=== PATIENT | male | born 1960 | race Caucasian/White ===

== ENCOUNTER 2017-10-23 07:27 | Day surgery (SDC) | END 2017-10-23 10:45 | disposition home or self-care (01) ==

== ENCOUNTER 2018-05-07 05:39 | Day surgery (SDC) | payer OTHER ==
[2018-05-06 10:24] VITALS: BMI 32.8
--- NOTE | 2018-05-06 13:26 | PREOPHP ---
DATE OF ADMISSION: 05/07/2018 DATE OF SERVICE: 05/07/2018. HISTORY OF PRESENT ILLNESS: This 57-year-old patient is admitted for elective cataract surgery of th e left eye. The patient has had decreased vision in both eyes for the past years' time and 6 months ago underwent cataract surgery of the right eye with good visual result. The patient does not have a ny other prior history of eye disease. Patient does have a history of systemic hypertension, hyperch olesterolemia, gout and dry eyes. CURRENT MEDICATIONS INCLUDE: 1. Lisinopril. 2. Simvastatin. 3. Allopurinol and Artificial Tears. ALLERGIES: There are no known allergies. PHYSICAL EXAMINATION: The visual acuity with correction is 20/40 in the right eye and 20/70 in the l eft eye. Applanation tonometry is 13 mmHg in the left eye. Slit lamp examination reveals a posterio r chamber intraocular lens in the right eye and a moderate nuclear sclerotic and posterior subcapsula r cataract in the left eye. Examination of the retina is within normal limits. DIAGNOSIS: Nuclear sclerotic and posterior subcapsular cataract, left eye. PLAN: Cataract extraction with lens implant, left eye. The risks and alternatives to the surgery rascon ve been discussed with the patient as well as the hope for improvement of visual acuity. The patient understands this and agrees to proceed with surgery. Dictated By: SUSHIL BRAGG/JOSE Conf#: [id number] DID#: [id number]
[~2018-05-07] VITALS: Ht 167.6 cm; Wt 93.6 kg
[2018-05-07] VITALS (10 sets, daily range): BP systolic 132–147; BP diastolic 77–92; PULSE 72–90; RESP 16–22; Ht 167.6 cm; Wt 93.6 kg
[~2018-05-07 05:39] MED LIST: ALLO300T2 PO; ATOR40TA68 PO; HYDR25TA6 PO; LISI40TA3 PO
[2018-05-07] MEDS ORDERED: TROPICAMIDE 1% 15 ML OPH OPER SCH (06:00)
[2018-05-07] MEDS ORDERED: SOD CHLORIDE 0.9% 1,000 ML IV SCH (06:00)
[2018-05-07] MEDS ORDERED: CYCLOPENTOLATE/PHENYLEPH 2 ML OPH OPER SCH (06:00)
[2018-05-07] MEDS ORDERED: MOXIFLOXACIN 0.5% 3 ML OPH OPER SCH (06:00)
[2018-05-07] MEDS ORDERED: DICLOFENAC 0.1% 2.5 ML OPH OPER SCH (06:00)
[2018-05-07] MEDS ORDERED: CEFAZOLIN 1 GM INJ ONE (07:13)
[2018-05-07] MEDS ORDERED: MOXIFLOXACIN 0.5% 3 ML OPH ONE (07:13)
[2018-05-07] MEDS ORDERED: TETRACAINE 0.5% 4 ML OPH ONE (07:13)
[2018-05-07] MEDS ORDERED: CARBACHOL 0.01% 1.5 ML OPH INJ ONE (07:13)
[2018-05-07] MEDS ORDERED: LIDOCAINE 4% (MPF) 5 ML INJ ONE (07:13)
[2018-05-07] MEDS ORDERED: GENTAMICIN 80 MG INJ ONE (07:14)
[2018-05-07] MEDS ORDERED: NA HYALURONATE/CHONDROITIN 0.5 ML SYG ONE (07:14)
[2018-05-07] MEDS ORDERED: DEXAMETHASONE 4 MG/ML 1 ML INJ ONE (07:14)
[2018-05-07] MEDS ORDERED: EPINEPHrine 1 MG INJ ONE (07:14)
[2018-05-07] MEDS ORDERED: LIDOCAINE 1% (MPF) 10 ML INJ ONE (07:15)
--- NOTE | 2018-05-07 07:19 | PREAC ---
Date/Time of Note Date/Time of Note DATE: 05/07/18 TIME: 07:16 Anesthesia Eval and Record Evaluation Time Pre-Procedure Interview DATE: 05/07/18 TIME: 07:16 Age 57 Sex male NPO: 8 hrs Preoperative diagnosis Lt cataract Planned procedure Lt cataract extraction Past Medical History Past Medical History: Includes Cardio: HTN Renal: Other (gout) GI: GERD Surgery & Anesthesia Issues No known issue Meds Anticoagulation: No Beta Gokul within 24 hr: No Reason Beta Gokul not given: Pt. not on B-Gokul Reported Medications Atorvastatin* (Atorvastatin*) 40 Mg Tablet, 40 MG PO QHS, #30 TAB 10/23/17 Hydrochlorothiazide* (Hydrochlorothiazide*) 25 Mg Tab, 25 MG PO DAILY, #30 TAB 10/23/17 Lisinopril* (Lisinopril*) 40 Mg Tablet, 40 MG PO DAILY, #30 TAB 10/23/17 Allopurinol* (Allopurinol*) 300 Mg Tablet, 300 MG PO DAILY, TAB 10/23/17 Current Medications Diclofenac Sodium (Voltaren 0.1%) 1 drop Q5 MIN X 3 OPER Last administered on 05/07/18at 06:45; Admin Dose 1 DROP; Start 05/07/18 at 06:00 Tropicamide (Mydriacyl 1%) 1 drop Q5 MIN X3 OPER Last administered on 05/07/18at 06:46; Admin Dose 1 DROP; Start 05/07/18 at 06:00 Moxifloxacin HCl (Vigamox) 1 drop Q5 MIN X 3 OPER Last administered on 05/07/18at 06:46; Admin Dose 1 DROP; Start 05/07/18 at 06:00 Cyclopentolate/ Phenylephrine (Cyclomydril Oph 2 ml) 1 drop Q5 MIN X 3 OPER Last administered on 05/07/18at 06:45; Admin Dose 1 DROP; Start 05/07/18 at 06:00 Sodium Chloride 1,000 ml @ 25 mls/hr Q24H IV ; Start 05/07/18 at 06:00 Meds reviewed: Yes Allergies Coded Allergies: No Known Allergy (Unverified , 10/23/17) Allergies Reviewed: Yes Labs/Studies Labs Reviewed: Reviewed by anesthesiologist test: N/A Studies: ECG, CXR Pre-procedure Exam Airway: Adequate mouth opening, Adequate thyromental dist Mallampati: Mallampati II Teeth: Normal Lung: Normal Heart: Normal ASA Physical Status ASA physical status: 2 Emergency: None Planned Anesthetic General/MAC: MAC Planned Pain Management Local by surgeon Pre-operative Attestations Prior to commencing anesthesia and surgery, the patient was re-evaluated, there was verification of: *The patient's identity *The results of appropriate recent lab work and preoperative vital signs *The above evaluation not changing prior to induction *Anesthetic plan, risk benefits, alternative and complications discussed with patient/family; questions answered; patient/family understands, accepts and wishes to proceed. ROXIE KNAPP. [employer] May 07, 2018 07:19
[2018-05-07] MEDS ORDERED: LIDOCAINE 2% (SDV) 5 ML INJ ONE (07:27)
[2018-05-07] MEDS ORDERED: PROPOFOL 20 ML ONE (07:27)
[2018-05-07] MEDS ORDERED: hydrALAzine 20 MG INJ ONE (07:49)
[2018-05-07] MEDS ORDERED: LABETALOL HCL 20MG INJ IV PRN (08:00)
[2018-05-07] MEDS ORDERED: ONDANSETRON 4 MG INJ IV PRN (08:00)
[2018-05-07] MEDS ORDERED: FENTAnyl 50 MCG/ML VIAL IV PRN (08:00)
[2018-05-07] MEDS ORDERED: hydrALAzine 20 MG INJ IV PRN (08:00)
--- NOTE | 2018-05-07 08:14 | SIPON ---
Date/Time of Note Date/Time of Note DATE: 05/07/18 TIME: 08:13 Operative Report Preoperative Diagnosis posterior subcapsular cataract os Postoperative Diagnosis same Operation/Procedure Performed cataract extraction with lens implant os Surgeon sushil chau emergency room physician assistant none Anesthesia: MAC Estimated blood loss: none Transfusion Required none Specimen none Grafts/Implants posterior chamber lens implant Complications none SUSHIL CHAU MD May 07, 2018 08:14
--- NOTE | 2018-05-07 08:54 | OPR ---
DATE OF OPERATION: 05/07/2018 PREOPERATIVE DIAGNOSIS: Posterior subcapsular cataract, left eye. POSTOPERATIVE DIAGNOSIS: Posterior subcapsular cataract, left eye. OPERATION PERFORMED: Cataract extraction with lens implant, left eye. SURGEON: Sushil Ramirez MD ANESTHESIA: Local standby. ANESTHESIOLOGIST: Vianney Roche CRNA OPERATION: Phacoemulsification with posterior chamber intraocular lens implant, left eye. PROCEDURE: The patient was brought to the operating room and placed on the table with an IV in place and the patient attached to an phototypesetting equipment monitor. Oxygen was given via face mask. After some intravenous sedation was administered, local anesthesia was given using Xylocaine 2% with epinephrine, mixed with Marcaine 0.5%. This was given in a lid block and retrobulbar injection. The p atient was then prepped and draped in the usual sterile manner. A wire lid speculum was inserted between the lids of the left eye. A Superblade was used to enter the anterior chamber at the corneoscleral limbus at the 10:30 o'clock position. A separate incision was made using a 3.0-mm keratome which entered the corneoscleral junction at the 12 o'clock position. Thr ough this 3-mm opening, an irrigating cystotome was introduced into the anterior chamber. The chamber was filled with Viscoat and an anterior capsulotomy was performed. Balanced salt solution was then u sed for hydrodissection of the lens. A phacoemulsification handpiece was then brought into the field and introduced into the anterior chamber. The lens nucleus was emulsified using a deep groove and cr acking the nucleus into quadrants. Following this, each quadrant was aspirated and emulsified at the pupillary margin. After this was completed, the irrigation/aspiration handpiece was brought to the field, introduced in to the posterior chamber, and the lens cortical material was removed. When this was completed, additi onal Viscoat was injected into the anterior and posterior chambers. The 3-mm opening had its internal lips enlarged, and then the posterior chamber intraocular lens jony uring 20.0 diopters ([employer] Model LI61AO) was then injected into the posterior c hamber using the lens injector system. After the leading haptic was introduced into the capsular bag and the lens optic was present in the center of the eye, the injector was removed and the trailing rascon ptic was grasped with non-toothed forceps and introduced into the capsular fold superiorly. A Sinskey hook was then used to rotate the intraocular lens so that the lips were oriented in the horizontal m eridian. One 10-0 nylon suture was placed across the wound. Prior to tying, the irrigation/aspiration handpiece was reintroduced into the anterior chamber to rem ove the Viscoat. Miochol was instilled to constrict the pupil, and then the 10-0 nylon suture was tie d. The ends were cut short and then the knot was buried. Then, 0.5 mL of dexamethasone and 0.5 mL of Ancef were injected into the sub-Tenon space in the infer ior fornix. Ciloxan drops were then placed on the surface of the eye. The speculum was removed and a patch was applied. The patient then left the operating room in satisfactory condition. Dictated By: SUSHIL BRAGG/JOSE Conf#: [id number] DID#: [id number]
--- NOTE | 2018-05-07 09:47 | PAC ---
Date/Time of Note Date/Time of Note DATE: 05/07/18 TIME: 09:46 Post-Anesthesia Notes Post-Anesthesia Note Last documented vital signs Vital Signs Date Temp Pulse Resp B/P (MAP) Pulse Ox O2 O2 Flow FiO2 Time Delivery Rate 05/07/18 99.0 88 16 143/87 96 08:54 (105) 05/07/18 Room Air 08:48 Activity: WNL Respiratory function: WNL Cardiovascular function: WNL Mental status: Baseline Pain reasonably controlled: Yes Hydration appropriate: Yes Nausea/Vomiting absent: Yes ROXIE KNAPP CRNA May 07, 2018 09:47
== END 2018-05-07 09:27 | disposition home or self-care (01) ==
LOC: SDS 05:39
PROVIDERS: ATTEND Ophthalmology
DX: H25.042 Posterior subcapsular polar age-related cataract, left eye (principal); I10 Essential (primary) hypertension
CPT/HCPCS: 66984; J0171; J0360; J0690; J1100; J1580; V2632; Z7512; Z7610